=== PATIENT | male | born 1950 | race Two or more races ===

== ENCOUNTER 2017-11-09 13:51 | Emergency (ER) | payer MEDICARE, MEDICAID ==
[~2017-11-09] VITALS: Ht 5703.2 cm; Wt 95.5 kg
[~2017-11-09 13:51] MED LIST: ASPI-1265 PO; ENAL20TA75 PO; HYDR25TA4 PO; LISI-600 PO; METO25TA6 PO; POLOS EACHEYE; THI100T PO
[2017-11-09 14:37] LABS: BASOPHILS # (AUTO) 0.1 X10'3 (0-0.2); BASOPHILS % (AUTO) 1.4 % (0-1); EOSINOPHILS # (AUTO) 0.1 X10'3 (0-0.9); EOSINOPHILS % (AUTO) 1.3 % (0-6); HEMATOCRIT 44.7 % (42.0-52.0); HEMOGLOBIN 14.7 g/dl (14.0-17.9); LYMPHOCYTES # (AUTO) 1.6 X10'3 (1.1-4.8); LYMPHOCYTES % (AUTO) 26.1 % (21-51); MEAN CORPUSCULAR HEMOGLOBIN 29.6 PG (27.0-31.0); MEAN CORPUSCULAR HGB CONC 32.8 % (33.0-36.5); MEAN CORPUSCULAR VOLUME 90.2 FL (78-98); MEAN PLATELET VOLUME 9.7 FL (7.4-10.4); MONOCYTES # (AUTO) 0.9 X10'3 (0-0.9); MONOCYTES % (AUTO) 13.7 % (2-12); NEUTROPHILS # (AUTO) 3.6 X10'3 (1.8-7.7); NEUTROPHILS % (AUTO) 57.5 % (42-75); PLATELET COUNT 177 X10'3 (140-440); RED BLOOD COUNT 4.96 X10'6 (4.70-6.10); RED CELL DISTRIBUTION WIDTH 13.7 % (11.5-14.5); WHITE BLOOD COUNT 6.3 X10'3 (4.5-11.0)
[2017-11-09 14:53] LABS: INR 1.1 INR; PARTIAL THROMBOPLASTIN TIME 27 SECONDS (22-32); PROTHROMBIN TIME 11.2 SECONDS (9.0-12.0)
[2017-11-09 14:56] LABS: ALANINE AMINOTRANSFERASE 50 U/L (12-78); ALBUMIN 3.7 G/DL (3.4-5.0); ALBUMIN/GLOBULIN RATIO 0.8 (1.1-1.5); ALKALINE PHOSPHATASE 112 IU/L (46-116); ANION GAP 10 (8-16); ASPARTATE AMINO TRANSFERASE 41 U/L (10-37); BILIRUBIN,TOTAL 0.5 MG/DL (0.1-1.0); BLOOD UREA NITROGEN 13 MG/DL (7-18); BUN/CREATININE RATIO 13.5 (5.4-32.0); CALCIUM 8.2 MG/DL (8.5-10.1); CHLORIDE 105 MMOL/L (99-107); CREATININE 0.96 MG/DL (0.60-1.10); GLUCOSE 142 MG/DL (70-104); POTASSIUM 4.1 MMOL/L (3.5-5.1); SODIUM 145 MMOL/L (135-145); TOTAL CARBON DIOXIDE 29.6 MMOL/L (24-32); TOTAL PROTEIN 8.5 G/DL (6.4-8.2); eGFR 78 ML/MIN
[2017-11-09] MEDS ORDERED: chlordiazePOXIDE 25mg capsule PO ONE (16:30)
[2017-11-09 16:51] LABS: ETHANOL 0.244 GM/DL (0.0-0.010)
[2017-11-09 17:06] LABS: URINE AMPHETAMINE SCREEN NEGATIVE (Neg); URINE BARBITUATE SCREEN NEGATIVE (Neg); URINE BENZODIAZEPINES SCREEN NEGATIVE (Neg); URINE CANNABINOID SCREEN NEGATIVE (Neg); URINE COCAINE SCREEN NEGATIVE (Neg); URINE METHADONE SCREEN NEGATIVE (Neg); URINE OPIATE SCREEN NEGATIVE (Neg); URINE PHENCYCLIDINE SCREEN NEGATIVE (Neg)
[2017-11-09] MEDS: normal saline 1000ml 1,000 ML IV SCH ×2 (17:08→20:19)
[2017-11-09] MEDS ORDERED: LORazepam 2 mg/ml vial IV ONE (19:35)
[2017-11-09] MEDS ORDERED: ACET-2319 PO (23:25)
[2017-11-09] MEDS ORDERED: ASPI-1265 PO (23:25)
[2017-11-09] MEDS ORDERED: ATOR10TA PO (23:25)
[2017-11-09] MEDS ORDERED: DOXA4TAB2 PO (23:25)
[2017-11-10] MEDS ORDERED: DIPHENHYDRAMINE PO PRN (00:05)
[2017-11-10] MEDS ORDERED: ACETAMINOPHEN PO PRN (00:05)
[2017-11-10] MEDS ORDERED: acetaminophen 325mg tablet PO PRN (00:15)
[2017-11-10] MEDS ORDERED: diphenhydrAMINE 25mg capsule PO PRN (00:15)
[2017-11-10] MEDS ORDERED: aspirin 81mg tab.chew PO SCH (08:00)
[2017-11-10] MEDS ORDERED: doxazosin mesylate 2mg tablet PO SCH (08:00)
[2017-11-10] MEDS ORDERED: atorvastatin 10mg tablet PO SCH (08:00)
[2017-11-10 08:05] LABS: CLARITY,URINE CLEAR (Clear); COLOR,URINE YELLOW (Yellow); GLUCOSE, URINE NEGATIVE (Neg); KETONES,URINE NEGATIVE (Neg); LEUKOCYTE ESTERASE ,URINE NEGATIVE (Neg); NITRITES, URINE NEGATIVE (Neg); OCCULT BLOOD,URINE NEGATIVE (Neg); PH,URINE 6.5 (4.8-8.0); PROTEIN,URINE NEGATIVE (Neg); UROBILINOGEN,URINE 0.2 E.U/dL (0.2-1.0)
[2017-11-10 08:06] LABS: UA COLLECTION TYPE CLN CATCH MIDSTREAM
[2017-11-10] MEDS ORDERED: LORazepam 1 MG tablet PO PRN (09:35)
[2017-11-10 17:40] VITALS: BP 149/94
== END 2017-11-10 17:00 | disposition home or self-care (01) ==
LOC: ER 13:52
DX: F10.129 Alcohol abuse with intoxication, unspecified (principal); R45.851 Suicidal ideations; F15.10 Other stimulant abuse, uncomplicated; I25.10 Atherosclerotic heart disease of native coronary artery without angina pectoris; I10 Essential (primary) hypertension; E78.00 Pure hypercholesterolemia, unspecified; F32.9 Major depressive disorder, single episode, unspecified; Z88.0 Allergy status to penicillin; Z98.61 Coronary angioplasty status; Z98.890 Other specified postprocedural states; Z79.82 Long term (current) use of aspirin; Z79.899 Other long term (current) drug therapy; Z60.2 Problems related to living alone; Y90.9 Presence of alcohol in blood, level not specified
CPT/HCPCS: 36415; 71045; 80053; 80305; 80320; 81003; 84484; 85025; 85610; 85730; 93005; 96361; 96374; 99285; A4353; J2060; J7030; Q0163

== ENCOUNTER 2017-11-30 01:24 | Emergency (ER) | payer MEDICARE, MEDICAID ==
[~2017-11-30] VITALS: Ht 172.7 cm; Wt 100.5 kg
[~2017-11-30 01:24] MED LIST changes: +ACET-2319 PO; +ATOR10TA PO; +CHLO10CA6 PO; +DOXA4TAB2 PO; -ENAL20TA75 PO; -HYDR25TA4 PO; -LISI-600 PO; +METO-467 PO; -METO25TA6 PO; -POLOS EACHEYE; -THI100T PO
[2017-11-30] MEDS ORDERED: ketorolac trometh inj. 60 MG/2 ML VIAL IM ONE (02:10)
[2017-11-30 03:30] LABS: CLARITY,URINE CLEAR (Clear); COLOR,URINE YELLOW (Yellow); GLUCOSE, URINE NEGATIVE (Neg); KETONES,URINE NEGATIVE (Neg); LEUKOCYTE ESTERASE ,URINE NEGATIVE (Neg); NITRITES, URINE NEGATIVE (Neg); OCCULT BLOOD,URINE NEGATIVE (Neg); PH,URINE 6.5 (4.8-8.0); PROTEIN,URINE NEGATIVE (Neg); UROBILINOGEN,URINE 0.2 E.U/dL (0.2-1.0)
[2017-11-30 03:36] LABS: UA COLLECTION TYPE CLN CATCH MIDSTREAM
[2017-11-30 03:42] LABS: URINE AMPHETAMINE SCREEN NEGATIVE (Neg); URINE BARBITUATE SCREEN NEGATIVE (Neg); URINE BENZODIAZEPINES SCREEN POSITIVE (Neg); URINE CANNABINOID SCREEN POSITIVE (Neg); URINE COCAINE SCREEN NEGATIVE (Neg); URINE METHADONE SCREEN NEGATIVE (Neg); URINE OPIATE SCREEN NEGATIVE (Neg); URINE PHENCYCLIDINE SCREEN NEGATIVE (Neg)
[2017-11-30 04:08] LABS: BASOPHILS # (AUTO) 0.1 X10'3 (0-0.2); BASOPHILS % (AUTO) 0.8 % (0-1); EOSINOPHILS # (AUTO) 0.2 X10'3 (0-0.9); EOSINOPHILS % (AUTO) 2.3 % (0-6); HEMATOCRIT 37.5 % (42.0-52.0); HEMOGLOBIN 12.8 g/dl (14.0-17.9); LYMPHOCYTES # (AUTO) 2.3 X10'3 (1.1-4.8); LYMPHOCYTES % (AUTO) 31.7 % (21-51); MEAN CORPUSCULAR HEMOGLOBIN 31.5 PG (27.0-31.0); MEAN CORPUSCULAR HGB CONC 34.2 % (33.0-36.5); MEAN CORPUSCULAR VOLUME 92.2 FL (78-98); MEAN PLATELET VOLUME 9.6 FL (7.4-10.4); MONOCYTES % (AUTO) 13.7 % (2-12); NEUTROPHILS # (AUTO) 3.7 X10'3 (1.8-7.7); NEUTROPHILS % (AUTO) 51.5 % (42-75); PLATELET COUNT 129 X10'3 (140-440); RED BLOOD COUNT 4.07 X10'6 (4.70-6.10); RED CELL DISTRIBUTION WIDTH 16.2 % (11.5-14.5); WHITE BLOOD COUNT 7.2 X10'3 (4.5-11.0)
[2017-11-30] MEDS ORDERED: doxazosin mesylate 2mg tablet PO ONE (04:15)
[2017-11-30 04:30] LABS: ALANINE AMINOTRANSFERASE 58 U/L (12-78); ALBUMIN 3.4 G/DL (3.4-5.0); ALBUMIN/GLOBULIN RATIO 0.8 (1.1-1.5); ALKALINE PHOSPHATASE 96 IU/L (46-116); ANION GAP 8 (8-16); ASPARTATE AMINO TRANSFERASE 35 U/L (10-37); BILIRUBIN,TOTAL 1.1 MG/DL (0.1-1.0); BLOOD UREA NITROGEN 19 MG/DL (7-18); BUN/CREATININE RATIO 23.2 (5.4-32.0); CALCIUM 8.6 MG/DL (8.5-10.1); CHLORIDE 104 MMOL/L (99-107); CREATININE 0.82 MG/DL (0.60-1.10); ETHANOL < 0.010 GM/DL (0.0-0.010); GLUCOSE 96 MG/DL (70-104); POTASSIUM 3.7 MMOL/L (3.5-5.1); SODIUM 140 MMOL/L (135-145); TOTAL CARBON DIOXIDE 27.9 MMOL/L (24-32); TOTAL PROTEIN 7.9 G/DL (6.4-8.2); eGFR > 90 ML/MIN
[2017-11-30 04:33] LABS: ACETAMINOPHEN < 2.0 UG/ML (10-30)
[2017-11-30] MEDS ORDERED: ACETAMINOPHEN PO PRN (05:45)
[2017-11-30] MEDS ORDERED: DIPHENHYDRAMINE PO PRN (05:45)
[2017-11-30] MEDS ORDERED: aspirin 81mg tab.chew PO SCH (08:00)
[2017-11-30] MEDS ORDERED: doxazosin mesylate 2mg tablet PO SCH (08:00)
[2017-11-30] MEDS ORDERED: atorvastatin 10mg tablet PO SCH (08:00)
[2017-11-30 10:49] VITALS: BP 159/87
[2017-11-30] MEDS ORDERED: diphenhydrAMINE 25mg capsule PO PRN (21:00)
[2017-11-30] MEDS ORDERED: acetaminophen 325mg tablet PO PRN (21:00)
== END 2017-11-30 15:39 | disposition home or self-care (01) ==
LOC: ER 01:25
DX: R45.851 Suicidal ideations (principal); M79.672 Pain in left foot; M79.671 Pain in right foot; I25.10 Atherosclerotic heart disease of native coronary artery without angina pectoris; E78.00 Pure hypercholesterolemia, unspecified; I10 Essential (primary) hypertension; F12.10 Cannabis abuse, uncomplicated; Z59.0 Homelessness; Z88.0 Allergy status to penicillin; Z79.899 Other long term (current) drug therapy
CPT/HCPCS: 36415; 73630; 80053; 80305; 80320; 80329; 81003; 84443; 85025; 96372; 99285; J1885

== ENCOUNTER 2017-11-30 14:08 | Inpatient (IN) | payer MEDICARE, MEDICAID ==
[~2017-11-30] VITALS: Ht 172.7 cm; Wt 98.8 kg
[2017-11-30] MEDS ORDERED: ACETAMINOPHEN PO PRN (14:40)
[2017-11-30] MEDS ORDERED: DIPHENHYDRAMINE PO PRN (14:40)
[2017-11-30] MEDS ORDERED: acetaminophen 325mg tablet PO PRN ×2 (14:45→21:25)
[2017-11-30 15:55] VITALS: BP 136/95
[2017-11-30] MEDS: LORazepam 1 MG tablet PO PRN (19:22)
[2017-11-30 19:41] VITALS: BP 158/102
[2017-11-30] MEDS: diphenhydrAMINE 25mg capsule PO PRN (20:08)
[2017-11-30 20:35] VITALS: BP 127/90
[2017-12-01 08:00] VITALS: BP 147/95
[2017-12-01 08:15] VITALS: BP 147/95
[2017-12-01] MEDS: aspirin 81mg tab.chew PO SCH (08:39)
[2017-12-01] MEDS: doxazosin mesylate 2mg tablet PO SCH (08:39)
[2017-12-01] MEDS: LORazepam 1 MG tablet PO PRN ×2 (08:39→19:38)
[2017-12-01] MEDS: atorvastatin 10mg tablet PO SCH (08:39)
[2017-12-01] MEDS ORDERED: venlafaxine XR 37.5mg cap (Q24H) PO ONE (08:55)
[2017-12-01] MEDS: gabapentin 300mg capsule PO SCH ×2 (13:13→20:07)
[2017-12-01] MEDS: mag hydrox/Alum hydrox/simeth 30ml oral suspension PO PRN (16:40)
[2017-12-01 19:26] VITALS: BP 141/103
[2017-12-01] MEDS: traZODone 50mg tablet PO PRN (20:07)
[2017-12-01 20:30] VITALS: BP 150/90
[2017-12-02] MEDS: doxazosin mesylate 2mg tablet PO SCH (08:27)
[2017-12-02] MEDS: aspirin 81mg tab.chew PO SCH (08:27)
[2017-12-02] MEDS: venlafaxine XR 75mg capsule (Q24H) PO SCH (08:27)
[2017-12-02] MEDS: atorvastatin 10mg tablet PO SCH (08:28)
[2017-12-02] MEDS: metoprolol tartrate 25mg tablet PO SCH ×2 (08:28→20:40)
[2017-12-02] MEDS: gabapentin 300mg capsule PO SCH ×3 (08:28→20:41)
[2017-12-02 08:30] VITALS: BP 145/103
[2017-12-02 08:44] LABS: CHOL/HDL RATIO 1.9 (0.00-4.99); CHOLESTEROL 153 MG/DL (0-200); HDL CHOLESTEROL 80 MG/DL (35-60); LDL CHOLESTEROL 62 MG/DL (50-100); TRIGLYCERIDES 36 MG/DL (20-135)
[2017-12-02] MEDS: mag hydrox/Alum hydrox/simeth 30ml oral suspension PO PRN (17:30)
[2017-12-02 20:00] VITALS: BP 109/73
[2017-12-02] MEDS: traZODone 50mg tablet PO PRN (20:41)
[2017-12-02] MEDS: tamsulosin 0.4mg capsule PO SCH (20:41)
[2017-12-02] MEDS: diphenhydrAMINE 25mg capsule PO PRN (21:45)
[2017-12-02] MEDS: LORazepam 1 MG tablet PO PRN (21:45)
[2017-12-03 07:51] VITALS: BP 160/97
[2017-12-03] MEDS: aspirin 81mg tab.chew PO SCH (08:38)
[2017-12-03] MEDS: doxazosin mesylate 2mg tablet PO SCH (08:39)
[2017-12-03] MEDS: venlafaxine XR 75mg capsule (Q24H) PO SCH (08:40)
[2017-12-03] MEDS: gabapentin 300mg capsule PO SCH ×3 (08:40→20:47)
[2017-12-03] MEDS: metoprolol tartrate 25mg tablet PO SCH ×2 (08:40→20:00)
[2017-12-03] MEDS: atorvastatin 10mg tablet PO SCH (08:41)
[2017-12-03 19:00] VITALS: BP 99/75
[2017-12-03] MEDS: tamsulosin 0.4mg capsule PO SCH (20:47)
[2017-12-03] MEDS: diphenhydrAMINE 25mg capsule PO PRN (20:57)
[2017-12-03] MEDS: LORazepam 1 MG tablet PO PRN (21:58)
[2017-12-04 08:00] VITALS: BP 131/87
[2017-12-04] MEDS: aspirin 81mg tab.chew PO SCH (08:12)
[2017-12-04] MEDS: doxazosin mesylate 2mg tablet PO SCH ×2 (08:12→08:42)
[2017-12-04] MEDS: metoprolol tartrate 25mg tablet PO SCH ×2 (08:12→20:00)
[2017-12-04] MEDS: venlafaxine XR 75mg capsule (Q24H) PO SCH (08:12)
[2017-12-04] MEDS: atorvastatin 10mg tablet PO SCH (08:12)
[2017-12-04] MEDS: gabapentin 300mg capsule PO SCH ×3 (08:12→20:58)
[2017-12-04 19:19] VITALS: BP 104/68
[2017-12-04] MEDS: mag hydrox/Alum hydrox/simeth 30ml oral suspension PO PRN (20:00)
[2017-12-04] MEDS: docusate sod 100mg capsule PO SCH (20:58)
[2017-12-04] MEDS: LORazepam 0.5 MG tablet PO PRN (20:58)
[2017-12-04] MEDS: traZODone 50mg tablet PO PRN (20:58)
[2017-12-04] MEDS: tamsulosin 0.4mg capsule PO SCH (20:58)
[2017-12-05 08:00] VITALS: BP 106/86
[2017-12-05] MEDS: doxazosin mesylate 2mg tablet PO SCH ×2 (08:00→08:15)
[2017-12-05] MEDS: metoprolol tartrate 25mg tablet PO SCH ×3 (08:00→20:00)
[2017-12-05] MEDS: venlafaxine XR 75mg capsule (Q24H) PO SCH (08:14)
[2017-12-05] MEDS: docusate sod 100mg capsule PO SCH ×2 (08:14→20:00)
[2017-12-05] MEDS: aspirin 81mg tab.chew PO SCH (08:14)
[2017-12-05] MEDS: atorvastatin 10mg tablet PO SCH (08:15)
[2017-12-05] MEDS: gabapentin 300mg capsule PO SCH ×3 (08:15→21:11)
[2017-12-05] MEDS: mag hydrox/Alum hydrox/simeth 30ml oral suspension PO PRN (17:15)
[2017-12-05 19:06] VITALS: BP_SYST 104; BP_SYST 118; BP_DIAS 68; BP_DIAS 81
[2017-12-05] MEDS: LORazepam 0.5 MG tablet PO PRN (21:33)
[2017-12-05] MEDS: diphenhydrAMINE 25mg capsule PO PRN (22:20)
[2017-12-06 08:00] VITALS: BP 116/84
[2017-12-06] MEDS: metoprolol tartrate 25mg tablet PO SCH ×3 (08:00→20:00)
[2017-12-06] MEDS: docusate sod 100mg capsule PO SCH ×3 (08:00→20:00)
[2017-12-06] MEDS: aspirin 81mg tab.chew PO SCH (08:30)
[2017-12-06] MEDS: doxazosin mesylate 2mg tablet PO SCH (08:30)
[2017-12-06] MEDS: atorvastatin 10mg tablet PO SCH (08:30)
[2017-12-06] MEDS: venlafaxine XR 75mg capsule (Q24H) PO SCH (08:30)
[2017-12-06] MEDS: tamsulosin 0.4mg capsule PO SCH (08:31)
[2017-12-06] MEDS: gabapentin 300mg capsule PO SCH ×3 (08:31→20:26)
[2017-12-06] MEDS: mag hydrox/Alum hydrox/simeth 30ml oral suspension PO PRN (16:13)
[2017-12-06 20:00] VITALS: BP 123/82
[2017-12-06] MEDS: LORazepam 0.5 MG tablet PO PRN (20:26)
[2017-12-07] MEDS: tamsulosin 0.4mg capsule PO SCH (08:00)
[2017-12-07] MEDS: metoprolol tartrate 25mg tablet PO SCH ×2 (08:00→20:00)
[2017-12-07] MEDS: docusate sod 100mg capsule PO SCH ×2 (08:00→20:00)
[2017-12-07 08:06] VITALS: BP 118/80
[2017-12-07] MEDS: gabapentin 300mg capsule PO SCH ×3 (08:15→20:05)
[2017-12-07] MEDS: atorvastatin 10mg tablet PO SCH (08:15)
[2017-12-07] MEDS: doxazosin mesylate 2mg tablet PO SCH (08:15)
[2017-12-07] MEDS: venlafaxine XR 75mg capsule (Q24H) PO SCH (08:15)
[2017-12-07] MEDS: aspirin 81mg tab.chew PO SCH (08:16)
[2017-12-07] MEDS: mag hydrox/Alum hydrox/simeth 30ml oral suspension PO PRN (14:44)
[2017-12-07] MEDS: diphenhydrAMINE 25mg capsule PO PRN (20:05)
[2017-12-07] MEDS: LORazepam 0.5 MG tablet PO PRN (20:11)
[2017-12-07 20:23] VITALS: BP 116/72
[2017-12-08 07:59] VITALS: BP 131/95
[2017-12-08] MEDS: docusate sod 100mg capsule PO SCH ×3 (08:00→20:40)
[2017-12-08] MEDS: metoprolol tartrate 25mg tablet PO SCH (08:00)
[2017-12-08] MEDS: tamsulosin 0.4mg capsule PO SCH (08:00)
[2017-12-08] MEDS: aspirin 81mg tab.chew PO SCH (08:06)
[2017-12-08] MEDS: gabapentin 300mg capsule PO SCH ×3 (08:06→20:40)
[2017-12-08] MEDS: doxazosin mesylate 2mg tablet PO SCH (08:07)
[2017-12-08] MEDS: atorvastatin 10mg tablet PO SCH (08:07)
[2017-12-08] MEDS: venlafaxine XR 75mg capsule (Q24H) PO SCH (08:07)
[2017-12-08] MEDS: mag hydrox/Alum hydrox/simeth 30ml oral suspension PO PRN (16:36)
[2017-12-08 17:02] LABS: CLARITY,URINE CLEAR (Clear); COLOR,URINE YELLOW (Yellow); GLUCOSE, URINE NEGATIVE (Neg); KETONES,URINE NEGATIVE (Neg); LEUKOCYTE ESTERASE ,URINE NEGATIVE (Neg); NITRITES, URINE NEGATIVE (Neg); OCCULT BLOOD,URINE NEGATIVE (Neg); PROTEIN,URINE NEGATIVE (Neg); UROBILINOGEN,URINE 0.2 E.U/dL (0.2-1.0)
[2017-12-08 17:16] LABS: UA COLLECTION TYPE CLN CATCH MIDSTREAM
[2017-12-08 19:29] VITALS: BP 115/78
[2017-12-08] MEDS: mirtazapine 15mg tablet PO SCH (20:39)
[2017-12-09] MEDS: LORazepam 0.5 MG tablet PO PRN (05:23)
[2017-12-09] MEDS: docusate sod 100mg capsule PO SCH ×2 (08:00→20:00)
[2017-12-09] MEDS: gabapentin 300mg capsule PO SCH ×3 (08:12→20:19)
[2017-12-09] MEDS: atorvastatin 10mg tablet PO SCH (08:13)
[2017-12-09] MEDS: venlafaxine XR 75mg capsule (Q24H) PO SCH (08:13)
[2017-12-09] MEDS: aspirin 81mg tab.chew PO SCH (08:14)
[2017-12-09] MEDS: doxazosin mesylate 2mg tablet PO SCH (08:14)
[2017-12-09 08:24] VITALS: BP 102/73
[2017-12-09 19:19] VITALS: BP 133/85
[2017-12-09] MEDS: mirtazapine 15mg tablet PO SCH (20:19)
[2017-12-10] MEDS: LORazepam 0.5 MG tablet PO PRN (04:19)
[2017-12-10 08:00] VITALS: BP 133/95
[2017-12-10] MEDS: docusate sod 100mg capsule PO SCH ×3 (08:00→20:14)
[2017-12-10] MEDS: atorvastatin 10mg tablet PO SCH (08:03)
[2017-12-10] MEDS: venlafaxine XR 75mg capsule (Q24H) PO SCH (08:03)
[2017-12-10] MEDS: gabapentin 300mg capsule PO SCH ×3 (08:03→20:14)
[2017-12-10] MEDS: aspirin 81mg tab.chew PO SCH (08:03)
[2017-12-10] MEDS: doxazosin mesylate 2mg tablet PO SCH (08:03)
[2017-12-10 19:14] VITALS: BP 139/93
[2017-12-10] MEDS: mirtazapine 15mg tablet PO SCH (20:14)
[2017-12-11] MEDS: LORazepam 0.5 MG tablet PO PRN (04:05)
[2017-12-11] MEDS: docusate sod 100mg capsule PO SCH ×2 (08:00→21:41)
[2017-12-11] MEDS: doxazosin mesylate 2mg tablet PO SCH (08:00)
[2017-12-11] MEDS: gabapentin 300mg capsule PO SCH ×3 (08:36→21:41)
[2017-12-11] MEDS: venlafaxine XR 75mg capsule (Q24H) PO SCH (08:37)
[2017-12-11] MEDS: atorvastatin 10mg tablet PO SCH (08:37)
[2017-12-11] MEDS: aspirin 81mg tab.chew PO SCH (08:37)
[2017-12-11 08:38] VITALS: BP 101/74
[2017-12-11] MEDS ORDERED: doxazosin mesylate 2mg tablet PO ONE (13:50)
[2017-12-11 19:11] VITALS: BP 113/69
[2017-12-11] MEDS: mirtazapine 15mg tablet PO SCH (21:41)
[2017-12-12] MEDS: LORazepam 0.5 MG tablet PO PRN (01:56)
[2017-12-12] MEDS: aspirin 81mg tab.chew PO SCH ×2 (01:56→08:57)
[2017-12-12 08:00] VITALS: BP 112/74
[2017-12-12] MEDS: docusate sod 100mg capsule PO SCH ×2 (08:00→20:50)
[2017-12-12] MEDS: doxazosin mesylate 2mg tablet PO SCH (08:56)
[2017-12-12] MEDS: gabapentin 300mg capsule PO SCH ×3 (08:56→20:51)
[2017-12-12] MEDS: venlafaxine XR 75mg capsule (Q24H) PO SCH (08:56)
[2017-12-12] MEDS: atorvastatin 10mg tablet PO SCH (08:57)
[2017-12-12 19:15] VITALS: BP 104/74
[2017-12-12] MEDS: mirtazapine 15mg tablet PO SCH (20:51)
[2017-12-13] MEDS: gabapentin 300mg capsule PO SCH ×3 (07:16→20:51)
[2017-12-13] MEDS: atorvastatin 10mg tablet PO SCH (07:16)
[2017-12-13] MEDS: venlafaxine XR 75mg capsule (Q24H) PO SCH (07:17)
[2017-12-13] MEDS: doxazosin mesylate 2mg tablet PO SCH (07:17)
[2017-12-13 08:00] VITALS: BP 104/71
[2017-12-13] MEDS: docusate sod 100mg capsule PO SCH ×2 (08:00→20:51)
[2017-12-13] MEDS: mag hydrox/Alum hydrox/simeth 30ml oral suspension PO PRN (17:24)
[2017-12-13 19:47] VITALS: BP 115/73
[2017-12-13] MEDS: mirtazapine 15mg tablet PO SCH (20:51)
[2017-12-13] MEDS ORDERED: tuberculin, purif. prot. deriv. 5 units/0.1ml ID ONE (21:10)
[2017-12-14 08:23] VITALS: BP 139/100
[2017-12-14] MEDS: atorvastatin 10mg tablet PO SCH (08:36)
[2017-12-14] MEDS: aspirin 81mg tab.chew PO SCH (08:36)
[2017-12-14] MEDS: venlafaxine XR 75mg capsule (Q24H) PO SCH (08:37)
[2017-12-14] MEDS: docusate sod 100mg capsule PO SCH (08:37)
[2017-12-14] MEDS: doxazosin mesylate 2mg tablet PO SCH (08:37)
[2017-12-14] MEDS: gabapentin 300mg capsule PO SCH ×2 (08:37→13:51)
[2017-12-14] MEDS ORDERED: tuberculin, purif. prot. deriv. 5 units/0.1ml ID ONE (10:00)
[2017-12-14] MEDS ORDERED: ATOR10TA PO (13:20)
[2017-12-14] MEDS ORDERED: VENL150C58 PO (13:20)
[2017-12-14] MEDS ORDERED: ASPI-1265 PO (13:20)
[2017-12-14] MEDS ORDERED: GABA300C PO (13:20)
[2017-12-14] MEDS ORDERED: MIRT15TA8 PO (13:20)
[2017-12-14] MEDS ORDERED: DOXA4TAB2 PO (13:20)
[2017-12-14] MEDS ORDERED: COL100C PO (13:20)
[2017-12-14] MEDS ORDERED: MAG30ORA PO (13:20)
== END 2017-12-14 15:30 | disposition home or self-care (01) | DRG 885 ==
LOC: ADULT MH 14:08
PROVIDERS: ADMIT Psychiatry & Neurology Psychiatry; ATTEND Psychiatry & Neurology Psychiatry
DX: F33.2 Major depressive disorder, recurrent severe without psychotic features (principal); R45.851 Suicidal ideations; G62.9 Polyneuropathy, unspecified; E78.00 Pure hypercholesterolemia, unspecified; F10.20 Alcohol dependence, uncomplicated; F41.9 Anxiety disorder, unspecified; G47.00 Insomnia, unspecified; G47.33 Obstructive sleep apnea (adult) (pediatric); M79.671 Pain in right foot; M79.672 Pain in left foot; R35.0 Frequency of micturition; F12.90 Cannabis use, unspecified, uncomplicated; I10 Essential (primary) hypertension; I25.10 Atherosclerotic heart disease of native coronary artery without angina pectoris; K59.00 Constipation, unspecified; N32.81 Overactive bladder; N40.1 Benign prostatic hyperplasia with lower urinary tract symptoms; Z95.5 Presence of coronary angioplasty implant and graft; Z88.0 Allergy status to penicillin; Z79.899 Other long term (current) drug therapy; Z79.82 Long term (current) use of aspirin; Z80.0 Family history of malignant neoplasm of digestive organs; Z81.8 Family history of other mental and behavioral disorders
CPT/HCPCS: 36415; 80061; 81003; 83036; 87070; Q0163

== ENCOUNTER 2018-09-18 09:42 | Emergency (ER) | payer MEDICARE ==
[~2018-09-18] VITALS: Ht 172.7 cm; Wt 102.8 kg
[~2018-09-18 09:42] MED LIST changes: -ASPI-1265 PO; -ATOR10TA PO; -CHLO10CA6 PO; -DOXA4TAB2 PO; -METO-467 PO
[2018-09-18 09:47] VITALS: BP 147/108
--- NOTE | 2018-09-18 11:25 | NUR ---
Patient seen and assessed by provider.
[2018-09-18 11:57] LABS: CLARITY,URINE CLEAR (Clear); COLOR,URINE YELLOW (Yellow); GLUCOSE, URINE NEGATIVE (Neg); KETONES,URINE NEGATIVE (Neg); LEUKOCYTE ESTERASE ,URINE NEGATIVE (Neg); NITRITES, URINE NEGATIVE (Neg); OCCULT BLOOD,URINE NEGATIVE (Neg); PROTEIN,URINE NEGATIVE (Neg); UROBILINOGEN,URINE 0.2 E.U/dL (0.2-1.0)
[2018-09-18 11:59] LABS: UA COLLECTION TYPE CLN CATCH MIDSTREAM
== END 2018-09-18 11:35 | disposition home or self-care (01) ==
LOC: ER 09:43
DX: G62.9 Polyneuropathy, unspecified (principal); F41.9 Anxiety disorder, unspecified; F32.9 Major depressive disorder, single episode, unspecified; I25.10 Atherosclerotic heart disease of native coronary artery without angina pectoris; E78.00 Pure hypercholesterolemia, unspecified; I10 Essential (primary) hypertension; Z95.1 Presence of aortocoronary bypass graft; F10.10 Alcohol abuse, uncomplicated; F12.90 Cannabis use, unspecified, uncomplicated; Z88.0 Allergy status to penicillin
CPT/HCPCS: 81003; 99283

== ENCOUNTER 2019-12-26 12:01 | Emergency (ER) | payer MEDICARE ==
[2019-12-26 12:34] LABS: BASOPHILS # (AUTO) 0.1 X10'3 (0-0.2); EOSINOPHILS # (AUTO) 0.1 X10'3 (0-0.9); EOSINOPHILS % (AUTO) 1.1 % (0-6); HEMATOCRIT 44.1 % (42.0-52.0); HEMOGLOBIN 14.7 g/dl (14.0-17.9); LYMPHOCYTES # (AUTO) 1.5 X10'3 (1.1-4.8); MEAN CORPUSCULAR HEMOGLOBIN 30.7 PG (27.0-31.0); MEAN CORPUSCULAR HGB CONC 33.2 g/dL (33.0-36.5); MEAN CORPUSCULAR VOLUME 92.4 FL (78-98); MEAN PLATELET VOLUME 10.3 FL (7.4-10.4); MONOCYTES # (AUTO) 0.7 X10'3 (0-0.9); MONOCYTES % (AUTO) 9.4 % (2-12); NEUTROPHILS # (AUTO) 5.3 X10'3 (1.8-7.7); NEUTROPHILS % (AUTO) 69.5 % (42-75); PLATELET COUNT 177 X10'3 (140-440); RED BLOOD COUNT 4.77 X10'6 (4.70-6.10); RED CELL DISTRIBUTION WIDTH 13.6 % (11.5-14.5); WHITE BLOOD COUNT 7.6 X10'3 (4.5-11.0)
[2019-12-26] MEDS ORDERED: normal saline 1000ML IV soln IVB ONE (12:40)
[2019-12-26] MEDS ORDERED: ondansetron/PF 4mg/2ml inj IV ONE (12:40)
[2019-12-26 12:48] LABS: ALANINE AMINOTRANSFERASE 28 U/L (12-78); ALBUMIN 3.9 G/DL (3.4-5.0); ALBUMIN/GLOBULIN RATIO 0.9 (1.1-1.5); ALKALINE PHOSPHATASE 100 IU/L (46-116); ANION GAP 5 (8-16); ASPARTATE AMINO TRANSFERASE 21 U/L (10-37); BILIRUBIN,TOTAL 0.8 MG/DL (0.1-1.0); BLOOD UREA NITROGEN 17 MG/DL (7-18); BUN/CREATININE RATIO 18.7 (5.4-32.0); CALCIUM 9.5 MG/DL (8.5-10.1); CHLORIDE 106 MMOL/L (99-107); CREATININE 0.91 MG/DL (0.60-1.10); GLUCOSE 94 MG/DL (70-104); POTASSIUM 4.6 MMOL/L (3.5-5.1); SODIUM 140 MMOL/L (135-145); TOTAL CARBON DIOXIDE 28.7 MMOL/L (24-32); TOTAL PROTEIN 8.4 G/DL (6.4-8.2); eGFR 83 ML/MIN
[2019-12-26] MEDS ORDERED: LORazepam 2 mg/ml vial IV ONE (12:55)
[2019-12-26] MEDS ORDERED: ONDA4TAB6 PO (13:51)
[2019-12-26 13:53] VITALS: BP 135/74
== END 2019-12-26 13:54 | disposition home or self-care (01) ==
LOC: ER 12:02
DX: R07.89 Other chest pain (principal); F41.9 Anxiety disorder, unspecified; I25.10 Atherosclerotic heart disease of native coronary artery without angina pectoris; E78.00 Pure hypercholesterolemia, unspecified; I10 Essential (primary) hypertension; F12.90 Cannabis use, unspecified, uncomplicated; G62.9 Polyneuropathy, unspecified; Z95.5 Presence of coronary angioplasty implant and graft; Z98.890 Other specified postprocedural states; Z88.0 Allergy status to penicillin
CPT/HCPCS: 36415; 71045; 80053; 84484; 85025; 93005; 96374; 96375; 99285; J2060; J2405; J7030

== ENCOUNTER 2020-10-09 14:14 | Emergency (ER) | payer MEDICARE ==
[~2020-10-09] VITALS: Ht 172.7 cm; Wt 97.7 kg
[~2020-10-09 14:14] MED LIST changes: +ONDA4TAB6 PO
[2020-10-09 14:44] VITALS: BP 111/87
== END 2020-10-09 15:15 | disposition home or self-care (01) ==
LOC: ER 14:15
DX: U07.1 COVID-19 (principal); B34.9 Viral infection, unspecified; R50.9 Fever, unspecified; R51.9 Headache, unspecified; R53.83 Other fatigue; I25.10 Atherosclerotic heart disease of native coronary artery without angina pectoris; E78.00 Pure hypercholesterolemia, unspecified; I10 Essential (primary) hypertension; F32.9 Major depressive disorder, single episode, unspecified; F12.90 Cannabis use, unspecified, uncomplicated; Z98.890 Other specified postprocedural states; Z72.89 Other problems related to lifestyle; Z60.2 Problems related to living alone; Z88.0 Allergy status to penicillin; Z79.899 Other long term (current) drug therapy
CPT/HCPCS: 99282

== ENCOUNTER 2020-12-06 11:33 | Day surgery (SDC) | payer MEDICARE ==
[2020-11-29 14:52] LABS: BASOPHILS # (AUTO) 0.1 X10'3 (0-0.2); LYMPHOCYTES # (AUTO) 2.2 X10'3 (1.1-4.8); LYMPHOCYTES % (AUTO) 33.3 % (21-51); MONOCYTES # (AUTO) 0.8 X10'3 (0-0.9); NEUTROPHILS # (AUTO) 3.3 X10'3 (1.8-7.7); RED CELL DISTRIBUTION WIDTH 14.7 % (11.5-14.5)
[2020-11-29 14:54] LABS: BASOPHILS % (AUTO) 1.2 % (0-1); EOSINOPHILS # (AUTO) 0.2 X10'3 (0-0.9); EOSINOPHILS % (AUTO) 2.6 % (0-6); MEAN CORPUSCULAR HEMOGLOBIN 30.8 PG (27.0-31.0); MEAN CORPUSCULAR HGB CONC 33.2 g/dL (33.0-36.5); MEAN CORPUSCULAR VOLUME 92.9 FL (78-98); MEAN PLATELET VOLUME 10.2 FL (7.4-10.4); MONOCYTES % (AUTO) 12.5 % (2-12); NEUTROPHILS % (AUTO) 50.4 % (42-75); PRE OP HEMATOCRIT 41.4 % (42.0-52.0); PRE OP HEMOGLOBIN 13.8 g/dL (14.0-17.9); PRE OP PLATELET COUNT 178 X10'3 (140-440); RED BLOOD COUNT 4.46 X10'6 (4.70-6.10)
[2020-11-29 15:08] LABS: ALBUMIN 3.7 G/DL (3.4-5.0); ALBUMIN/GLOBULIN RATIO 0.8 (1.1-1.5); ALKALINE PHOSPHATASE 93 IU/L (46-116); BLOOD UREA NITROGEN 18 MG/DL (7-18); BUN/CREATININE RATIO 20.9 (5.4-32.0); CALCIUM 9.4 MG/DL (8.5-10.1); CHLORIDE 106 MMOL/L (99-107); CREATININE 0.86 MG/DL (0.60-1.10); PRE OP ALT 28 U/L (30-65); PRE OP ANION GAP 7 (8-16); PRE OP AST 20 U/L (10-37); PRE OP BILIRUB, TOTAL 0.4 MG/DL (0.0-1.0); PRE OP GLUCOSE 97 MG/DL (70-104); PRE OP POTASSIUM 4.2 MMOL/L (3.4-5.1); PRE OP SODIUM 143 MMOL/L (135-145); TOTAL CARBON DIOXIDE 29.8 MMOL/L (24-32); TOTAL PROTEIN 8.3 G/DL (6.4-8.2); eGFR 88 ML/MIN
[~2020-12-06] VITALS: Ht 172.7 cm; Wt 99.3 kg
[2020-12-06] VITALS (8 sets, daily range): BP systolic 122–139; BP diastolic 62–91
[~2020-12-06 11:33] MED LIST changes: -ACET-2319 PO; +ASPI-1265 PO; +ATOR40TA14 PO; +DULO-31 PO; +LOSA100T57 PO; -ONDA4TAB6 PO; +TRAZ-251 PO; +cefazolin/dext.iso 2gm/100ml 100 ML IV ONE; +famotidine 20mg tablet PO ONE; +ringers solution, lacted 1,000 ML IV SCH
--- NOTE | 2020-12-06 12:10 | NUR ---
NOTIFIED MD OF PCN ALLERGY (SKIN RASH) AND ORDER FOR ANCEF. OK WITH GIVING ANTIBIOTIC ORDERED.
[2020-12-06] MEDS ORDERED: GABA300T25 PO (12:28)
[2020-12-06] MEDS ORDERED: morphine 4 MG/ML inj SYRINge IV PRN (13:30)
[2020-12-06] MEDS ORDERED: labetalol 20mg/4ml (5mg/ml) syringe IV PRN (13:30)
[2020-12-06] MEDS ORDERED: fentaNYL/PF 50MCG/1 ML 2ML syringe IV PRN ×2 (13:30)
[2020-12-06] MEDS ORDERED: hydrALAZINE 20mg/ml inj. IV PRN (13:30)
[2020-12-06] MEDS ORDERED: morphine 2 MG/ML inj. syringe IV PRN (13:30)
[2020-12-06] MEDS ORDERED: ringers solution, lacted 1,000 ML IV SCH (13:30)
[2020-12-06] MEDS ORDERED: ondansetron/PF 4mg/2ml inj IV PRN (13:30)
[2020-12-06] MEDS ORDERED: ROPIVAcaine 0.5% (5mg/ml) 30ml vial ONE ×2 (14:29→14:48)
[2020-12-06] MEDS ORDERED: fentaNYL/PF 50MCG/1 ML 2ML syringe ONE (14:29)
[2020-12-06] MEDS ORDERED: midazolam 1 mg/ML 2ml injection ONE (14:29)
[2020-12-06] MEDS ORDERED: propofol inj 20 ML IV ONE (14:29)
[2020-12-06] MEDS ORDERED: LIDOcaine 2% (20mg/ml) 5ml vial ONE (14:29)
[2020-12-06] MEDS ORDERED: sevoflurane 250ml liquid IH ONE (14:35)
[2020-12-06] MEDS ORDERED: dexamethasone sod phosphate 4mg/ml inj. ONE (14:47)
[2020-12-06] MEDS ORDERED: ondansetron/PF 4mg/2ml inj ONE (14:47)
[2020-12-06] MEDS ORDERED: naloxone 0.4 mg/ml inj ONE (15:15)
--- NOTE | 2020-12-06 15:22 | NUR ---
Received from OR via , accompanied by Anesthesiologist DR GALLO and report given by Anesthesiolgist. AWAKENS TO VOICE. VITALS STABLE. DRESSING DI. CHER PAIN. TOES COOL AND PINK.
--- NOTE | 2020-12-06 16:42 | NUR ---
AWAKE AND ORIENTED. VITALS STABLE. [id number] DI. CHER PAIN. HOME WITH A FRIEND AT THIS TIME.
== END 2020-12-06 16:42 | disposition home or self-care (01) ==
LOC: PAS 11:33
PROVIDERS: ATTEND Podiatrist Foot & Ankle Surgery
DX: T87.34 Neuroma of amputation stump, left lower extremity (principal); G47.30 Sleep apnea, unspecified; I10 Essential (primary) hypertension; I25.10 Atherosclerotic heart disease of native coronary artery without angina pectoris; F32.9 Major depressive disorder, single episode, unspecified; F41.9 Anxiety disorder, unspecified; E66.9 Obesity, unspecified; Z68.33 Body mass index [BMI] 33.0-33.9, adult; Z95.5 Presence of coronary angioplasty implant and graft; Z88.0 Allergy status to penicillin; Z79.2 Long term (current) use of antibiotics; Z72.89 Other problems related to lifestyle; Z79.899 Other long term (current) drug therapy; Z96.652 Presence of left artificial knee joint; Z98.890 Other specified postprocedural states; G89.18 Other acute postprocedural pain; Y83.8 Other surgical procedures as the cause of abnormal reaction of the patient, or of later complication, without mention of misadventure at the time of the procedure; Y92.89 Other specified places as the place of occurrence of the external cause
CPT/HCPCS: 36415; 64447; 64450; 64782; 80053; 82948; 85025; A6223; J1100; J2001; J2250; J2310; J2405; J2704; J3010; A4618; A6449; A7000; J2795; J7120

== ENCOUNTER 2021-11-02 17:05 | Emergency (ER) | payer MEDICARE ==
[~2021-11-02] VITALS: Ht 172.7 cm; Wt 140.9 kg
[~2021-11-02 17:05] MED LIST changes: +GABA300T25 PO; -cefazolin/dext.iso 2gm/100ml 100 ML IV ONE; -famotidine 20mg tablet PO ONE; -ringers solution, lacted 1,000 ML IV SCH
[2021-11-02 17:43] VITALS: BP 171/106
== END 2021-11-02 18:29 | disposition home or self-care (01) ==
LOC: ER 17:06
DX: B34.9 Viral infection, unspecified (principal); Z20.822 Contact with and (suspected) exposure to COVID-19; R05.9 Cough, unspecified; R51.9 Headache, unspecified; R06.02 Shortness of breath; I25.10 Atherosclerotic heart disease of native coronary artery without angina pectoris; E78.00 Pure hypercholesterolemia, unspecified; I10 Essential (primary) hypertension; F32.A Depression, unspecified; F12.90 Cannabis use, unspecified, uncomplicated; Z98.890 Other specified postprocedural states; Z72.89 Other problems related to lifestyle; Z60.2 Problems related to living alone; Z88.0 Allergy status to penicillin; Z79.82 Long term (current) use of aspirin; Z79.899 Other long term (current) drug therapy
CPT/HCPCS: 87635; 99283; C9803

== ENCOUNTER 2023-05-07 18:07 | Emergency (ER) | payer MEDICARE, MEDICAID ==
[~2023-05-07] VITALS: Ht 172.7 cm; Wt 96.0 kg
[~2023-05-07 18:07] MED LIST changes: -LOSA100T57 PO; +LOSA100T58 PO
[2023-05-07 18:33] VITALS: TEMP 98.2
[2023-05-07 18:48] LABS: ALANINE AMINOTRANSFERASE 24 U/L (12-78); ALBUMIN 3.9 G/DL (3.4-5.0); ALKALINE PHOSPHATASE 95 IU/L (46-116); ANION GAP 6 (8-16); ASPARTATE AMINO TRANSFERASE 20 U/L (10-37); BILIRUBIN,TOTAL 0.4 MG/DL (0.1-1.0); BLOOD UREA NITROGEN 21 MG/DL (7-18); BUN/CREATININE RATIO 21.4 (10.0-20.0); CALCIUM 9.1 MG/DL (8.5-10.1); CHLORIDE 100 MMOL/L (99-107); CREATININE 0.98 MG/DL (0.60-1.10); GLUCOSE 91 MG/DL (70-104); POTASSIUM 3.9 MMOL/L (3.5-5.1); SODIUM 135 MMOL/L (135-145); TOTAL CARBON DIOXIDE 28.6 MMOL/L (24-32); TOTAL PROTEIN 7.9 G/DL (6.4-8.2); eCRCL 67 ML/MIN; eGFR 75 ML/MIN
[2023-05-07 18:55] LABS: PRO BRAIN NATRIURETIC PEPTIDE 107 PG/ML (0-125)
[2023-05-07 18:56] LABS: BASOPHILS # (AUTO) 0.1 X10'3 (0-0.2); BASOPHILS % (AUTO) 1.1 % (0-1); EOSINOPHILS # (AUTO) 0.1 X10'3 (0-0.9); HEMATOCRIT 43.2 % (42.0-52.0); HEMOGLOBIN 14.4 g/dl (14.0-17.9); LYMPHOCYTES % (AUTO) 24.1 % (21-51); MEAN CORPUSCULAR HEMOGLOBIN 31.5 PG (27.0-31.0); MEAN CORPUSCULAR HGB CONC 33.3 g/dL (33.0-36.5); MEAN CORPUSCULAR VOLUME 94.6 FL (78-98); MEAN PLATELET VOLUME 10.2 FL (7.4-10.4); MONOCYTES # (AUTO) 0.9 X10'3 (0-0.9); NEUTROPHILS # (AUTO) 5.1 X10'3 (1.8-7.7); NEUTROPHILS % (AUTO) 62.8 % (42-75); PLATELET COUNT 182 X10'3 (140-440); RED BLOOD COUNT 4.57 X10'6 (4.70-6.10); RED CELL DISTRIBUTION WIDTH 13.4 % (11.5-14.5); WHITE BLOOD COUNT 8.2 X10'3 (4.5-11.0)
--- NOTE | 2023-05-07 19:43 | NUR ---
PT PRESENTS TO THE ER WITH DIFFICULTY BREATHING X1 DAY. PT STATES " I JUST NEED AN INHALER, MAYBE THE CHANGE IN WEATHER HAS BEEN BOTHERING ME". PT DOES NOT APPEAR TO BE IN ANY DISTRESS. NO LABORED BREATHING, EVEN RESPIRATIONS. RR 18.
[2023-05-07] MEDS ORDERED: ALBU8HFA PO (20:07)
[2023-05-07 20:19] VITALS: BP 140/97; PULSE 77; RESP 18; O2SAT 99
== END 2023-05-07 20:21 | disposition home or self-care (01) ==
LOC: ER 18:07
DX: R06.02 Shortness of breath (principal); I11.9 Hypertensive heart disease without heart failure; F31.9 Bipolar disorder, unspecified; F12.10 Cannabis abuse, uncomplicated; Z79.899 Other long term (current) drug therapy
CPT/HCPCS: 36415; 71045; 80053; 83880; 84484; 85025; 93005; 99285